=== PATIENT | female | born 1990 | race American Indian/Alaskan Native ===

== ENCOUNTER 2018-09-25 16:19 | Emergency (ER) | payer OTHER ==
[2018-09-25 16:19] VITALS: BMI 31.1
[2018-09-25 16:44] VITALS: BP 133/80; PULSE 75; RESP 18; TEMP 98.9; O2SAT 99
[2018-09-25] MEDS ORDERED: PROPARACAINE/FLUORESCEIN SOD 100 DROP/5 ML BOTTLE OS STA (16:56)
--- NOTE | 2018-09-25 17:25 | C.PDOC ---
History Of Present Illness 28 year old female presents to the ER with a complaint of left eye pain since yesterday after her tow year old daughter accidentally poked her in the eye with her finger. Patient states the pain worsened today which prompted visit. Denies eye discharge. Time Seen by Provider: 09/25/18 16:53 Chief Complaint (Nursing): Eye Problem History Per: Patient History/Exam Limitations: no limitations Onset/Duration Of Symptoms: Days (Yesterday) Current Symptoms Are (Timing): Still Present Injury To Eye?: Yes Wears Contact Lens?: No Recent travel outside of the [place]: No Past Medical History Reviewed: Historical Data, Nursing Documentation, Vital Signs Vital Signs: Last Vital Signs Temp 98.9 F 09/25/18 16:38 Pulse 75 09/25/18 16:38 Resp 18 09/25/18 16:38 BP 133/80 09/25/18 16:38 Pulse Ox 99 09/25/18 16:38 - [employer] Procedures DELIVERY OF PRODUCTS OF CONCEPTION, EXTERNAL APPROACH (04/12/16) Family History: States: Unknown Family Hx - Social History Hx Alcohol Use: No Hx Substance Use: No - Immunization History Hx Tetanus Toxoid Vaccination: No Hx Influenza Vaccination: No Hx Pneumococcal Vaccination: No Review Of Systems Eyes: Positive for: Pain. Negative for: Other (Discharge) Physical Exam - Physical Exam Appears: Non-toxic Skin: Normal Color, Warm, Dry Head: Atraumatic, Normacephalic Eye(s): right: Normal Inspection, left: Other (mild conjunctival erythema, fluorescein uptake shows corneal abrasion at 3 o'clock) Oral Mucosa: Moist Neurological/Psych: Oriented x3, Normal Speech ED Course And Treatment O2 Sat by Pulse Oximetry: 99 (Room air) Pulse Ox Interpretation: Normal Progress Note: Patient is resting comfortably in the ER in no acute distress, vitals are stable, will discharge home with Rx and instructions to follow up with care director. Disposition - Disposition Referrals: Ryan Ramos [Staff Provider] - Disposition: HOME/ ROUTINE Disposition Time: 17:22 Condition: STABLE Additional Instructions: Follow up with care director within 1-2 days. Return to ED if feel worse. Prescriptions: Erythromycin 0.5% [Erythromycin] 1 applic OS QPM #1 tube Tobramycin 0.3% [Tobrex 0.3% Ophth Soln] 1 drop OU Q2 #1 bottle Instructions: Corneal Abrasion (DC) Forms: [employer] (Cambodian), School Excuse - Clinical Impression Clinical Impression: Corneal abrasion - PA / AUTOMOTIVE SERVICE CONSULTANT / Resident Statement MD/DO has reviewed & agrees with the documentation as recorded. - Scribe Statement The provider has reviewed the documentation as recorded by the Scribe Ck Paula All medical record entries made by the Scribe were at my direction and personally dictated by me. I have reviewed the chart and agree that the record accurately reflects my personal performance of the history, physical exam, medical decision making, and the department course for this patient. I have also personally directed, reviewed, and agree with the discharge instructions and disposition.
== END 2018-09-25 17:30 | disposition home or self-care (01) ==
LOC: C.ER 16:19
DX: S05.02XA Injury of conjunctiva and corneal abrasion without foreign body, left eye, initial encounter (principal); W50.0XXA Accidental hit or strike by another person, initial encounter

== ENCOUNTER 2019-02-15 14:55 | Emergency (ER) | payer OTHER ==
[2019-02-15 14:55] VITALS: BMI 31.1
[2019-02-15 15:02] VITALS: O2SAT 100
--- NOTE | 2019-02-15 15:33 | C.PDOC ---
History Of Present Illness 28 y/o female, with no PMHx, comes in complaining of a headache for the past 2 days, associated with an episode of vomiting earlier today and mild dizziness. Patient reports she had similar headaches before in the past but denies going to a hospital for it. She denies fever, chills, trauma, head injury, numbness, or tingling. Time Seen by Provider: 02/15/19 15:05 Chief Complaint (Nursing): Abdominal Pain History Per: Patient History/Exam Limitations: no limitations Onset/Duration Of Symptoms: Days Current Symptoms Are (Timing): Still Present Past Medical History Reviewed: Historical Data, Nursing Documentation, Vital Signs Vital Signs: Last Vital Signs Temp 98.4 F 02/15/19 14:59 Pulse 70 02/15/19 14:59 Resp 20 02/15/19 14:59 BP 147/92 H 02/15/19 14:59 Pulse Ox 100 02/15/19 14:59 - [employer] Procedures DELIVERY OF PRODUCTS OF CONCEPTION, EXTERNAL APPROACH (04/12/16) Family History: States: No Known Family Hx - Social History Hx Alcohol Use: No Hx Substance Use: No - Immunization History Hx Tetanus Toxoid Vaccination: No Hx Influenza Vaccination: No Hx Pneumococcal Vaccination: No Review Of Systems Except As Marked, All Systems Reviewed And Found Negative. Constitutional: Negative for: Fever, Chills Gastrointestinal: Positive for: Vomiting Musculoskeletal: Negative for: Neck Pain, Back Pain Neurological: Positive for: Headache, Dizziness. Negative for: Weakness, Numbness (or tingling) Physical Exam - Physical Exam Appears: Non-toxic, No Acute Distress Skin: Warm, Dry, No Rash Head: Atraumatic, Normacephalic Eye(s): bilateral: Normal Inspection, PERRL Ear(s): Bilateral: Normal Oral Mucosa: Moist Throat: Normal, No Erythema, No Exudate Neck: Normal ROM, Supple Chest: Symmetrical Cardiovascular: Rhythm Regular, No Friction Rub, No Murmur Respiratory: Normal Breath Sounds, No Rales, No Rhonchi, No Wheezing Gastrointestinal/Abdominal: Soft, No Tenderness Back: Normal Inspection, No CVA Tenderness Extremity: Normal ROM, No Deformity, No Swelling Extremity: Bilateral: Atraumatic, Normal Color And Temperature, Normal ROM Neurological/Psych: Oriented x3, Normal Speech, Normal Cognition, Normal Motor, Normal Sensation Gait: Steady ED Course And Treatment - Laboratory Results Result Diagrams: 02/15/19 16:03 02/15/19 16:03 O2 Sat by Pulse Oximetry: 100 (RA) Pulse Ox Interpretation: Normal - CT Scan/US Head CT Other Rad Studies (CT/US): Read By Radiologist, Radiology Report Reviewed CT/US Interpretation: FINDINGS: HEMORRHAGE: No intracranial hemorrhage. BRAIN: No mass effect or edema. No atrophy or chronic microvascular ischemic changes. VENTRICLES: Unremarkable. No hydrocephalus. CALVARIUM: Unremarkable. PARANASAL SINUSES: Unremarkable as visualized. No significant inflammatory changes. MASTOID AIR CELLS: Unremarkable as visualized. No inflammatory changes. OTHER FINDINGS: None. IMPRESSION: No acute i ntracranial abnormality. If symptoms persists, consider correlation with MRI. Medical Decision Making Medical Decision Making: Plan: --Head CT --Bloodwork --UA --Benadryl 25 mg IVP --Reglan 10 mg IVP --IV fluids 1L Vitals and labs are WNL's. On re-exam, the patient reports improvement of symptoms. Lungs are CTA, heart is RRR, abdomen is soft, non-tender and the patient is tolerating PO well. The patient is ambulatory in the ED with steady gait. Patient was instructed to follow up with the medical doctor within 1-2 days. Return if worsened. Disposition - Disposition Referrals: Kip Padron MD [Staff Provider] - Disposition: HOME/ ROUTINE Disposition Time: 17:23 Condition: IMPROVED Additional Instructions: Follow up with the medical doctor within 1-2 days. Return if worsened. Prescriptions: Acetaminophen/Butalbital/Caf [Fioricet] 1 tab PO TID PRN #20 tab PRN Reason: Headache Metoclopramide [Reglan] 1 tab PO TID PRN #25 tab PRN Reason: Nausea/Vomiting Instructions: Migraine Headache (DC) Forms: [employer] (Arabic) - Clinical Impression Clinical Impression: Migraine - PA / CLIENT SUCCESS SPECIALIST / Resident Statement MD/DO has reviewed & agrees with the documentation as recorded. - Scribe Statement The provider has reviewed the documentation as recorded by the Scribe Dayan Loera All medical record entries made by the Scribe were at my direction and personally dictated by me. I have reviewed the chart and agree that the record accurately reflects my personal performance of the history, physical exam, medical decision making, and the department course for this patient. I have also personally directed, reviewed, and agree with the discharge instructions and disposition.
[2019-02-15] MEDS ORDERED: DiphenhydrAMINE 50 mg/ml Inj IVP STA (15:35)
[2019-02-15] MEDS ORDERED: Sodium Chloride 0.9% 1,000 ML IV ONE (15:37)
[2019-02-15 16:10] LABS: BASO # 0.1 K/uL (0.0-0.2); BASO % 0.7 % (0.0-2.0); EOS # 0.1 K/uL (0.0-0.7); LYMPH # 1.3 K/uL (1.0-4.3); LYMPH % 15.8 % (20.0-40.0); MEAN CELL VOLUME 85.7 fL (81.0-99.0); MEAN CORPUSCULAR HEMOGLOBIN 27.4 pg (27.0-31.0); MEAN CORPUSCULAR HGB CONC 31.9 g/dL (33.0-37.0); MEAN PLATELET VOLUME 8.1 fL (7.2-11.7); MONO # 0.3 K/uL (0.0-0.8); MONO % 3.8 % (0.0-10.0); NEUT # 6.4 K/uL (1.8-7.0); NEUT % 78.7 % (50.0-75.0); RBC 5.13 Mil/uL (3.80-5.20); RED CELL DISTRIBUTION WIDTH 13.5 % (11.5-14.5); WHITE BLOOD COUNT 8.1 K/uL (4.8-10.8)
[2019-02-15 16:20] LABS: ALB/GLOB RATIO 1.6 (1.0-2.1); ALBUMIN 4.3 g/dL (3.5-5.0); ALT/SGPT 10 U/L (9-52); AST/SGOT 20 U/L (14-36); BLOOD UREA NITROGEN 13 mg/dL (7-17); CALCIUM 9.1 mg/dl (8.6-10.4); GFR NON-AFRICAN AMERICAN > 60
[2019-02-15] MEDS ORDERED: DiphenhydrAMINE 50 mg/ml Inj ONE (16:20)
[2019-02-15] MEDS ORDERED: Sodium Chloride 0.9% 1,000 ML ONE (16:21)
--- NOTE | 2019-02-15 16:23 | CT ---
Date of service: 02/15/2019 PROCEDURE: CT HEAD WITHOUT CONTRAST. HISTORY: Headache, vomiting, dizziness COMPARISON: None available. TECHNIQUE: Axial computed tomography images were obtained through the head/brain without intravenous contrast. Radiation dose: Total exam DLP = 1064.77 mGy-cm. This CT exam was performed using one or more of the following dose reduction techniques: Automated exposure control, adjustment of the mA and/or kV according to patient size, and/or use of iterative reconstruction technique. FINDINGS: HEMORRHAGE: No intracranial hemorrhage. BRAIN: No mass effect or edema. No atrophy or chronic microvascular ischemic changes. VENTRICLES: Unremarkable. No hydrocephalus. CALVARIUM: Unremarkable. PARANASAL SINUSES: Unremarkable as visualized. No significant inflammatory changes. MASTOID AIR CELLS: Unremarkable as visualized. No inflammatory changes. OTHER FINDINGS: None. IMPRESSION: No acute intracranial abnormality. If symptoms persists, consider correlation with MRI.
[2019-02-15 17:08] LABS: HCG,QUALITATIVE URINE NEGATIVE (NEGATIVE); SQUAMOUS EPITHIAL < 1 /hpf (0-5); URINE BACTERIA RARE (<OCC); URINE BILIRUBIN NEGATIVE (NEGATIVE); URINE BLOOD NEGATIVE (NEGATIVE); URINE CLARITY Clear (Clear); URINE COLOR Yellow (YELLOW); URINE GLUCOSE (UA) NORMAL (Normal); URINE LEUKOCYTE ESTERASE NEG Leu/uL (Negative); URINE PROTEIN 1+ mg/dL (NEGATIVE); URINE UROBILINOGEN NORMAL mg/dL (0.2-1.0)
[2019-02-15 18:00] VITALS: BP 113/73; PULSE 79; RESP 18; TEMP 98.1
== END 2019-02-15 18:00 | disposition home or self-care (01) ==
LOC: C.ER 14:55
DX: G43.909 Migraine, unspecified, not intractable, without status migrainosus (principal)
CPT/HCPCS: 70450; 80053; 81001; 84703; 85025; 96361; 96374; 96375; 99285; J1200; J2765; J7030